=== PATIENT | female | born 1930 | race Caucasian/White ===

== ENCOUNTER 2016-04-30 08:22 | Outpatient (CLI) | payer MEDICARE, OTHER ==
[2015-10-11 14:57] VITALS: BP 99/65
== END 2016-04-30 08:30 ==
LOC: POD 08:22
PROVIDERS: ATTEND Podiatrist Public Medicine
DX: B35.1 Tinea unguium (principal); L60.0 Ingrowing nail; M79.674 Pain in right toe(s); M79.675 Pain in left toe(s)
CPT/HCPCS: 11721; G0463

== ENCOUNTER 2016-05-26 12:09 | Outpatient (CLI) | payer MEDICARE, OTHER ==
[2015-10-11 14:57] VITALS: BP 99/65
[2016-05-26 12:34] LABS: BASOPHILS % 0.3 (0.0-1.5); EOSINOPHILS % 1.7 % (0.0-6.8); MEAN CORPUSCULAR HEMOGLOBIN 29.4 pg (28.0-34.0); MONOCYTES # 0.3 # k/uL (0.0-0.9); MONOCYTES % 3.3 % (0.0-11.0); NEUTROPHILS # 6.6 # k/uL (1.4-7.7)
[2016-05-26 12:54] LABS: eGFR (African) > 60; eGFR (Non-African) > 60
--- NOTE | 2016-05-26 14:30 | Diagnostic Imaging Report ---
TIKI SPENCE [facility] [address] [address] Report Submission Date: May 26, 2016 1:38:59 PM CDT Patient Study Name: LAURA ROBERTSON Date: May 26, 2016 12:34:15 PM CDT Modality Type: CT\SR Gender: F Description: : 30 Institution: [facility] Physician: TIKI SPENCE Computed tomography of the head without contrast History: Headache and mental status changes Findings: Prior exams were not provided for comparison. Transverse brain sections are obtained without contrast revealing left lateral frontal encephalomalacia, global brain atrophy, and moderate to marked hydrocephalus. 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 There is no intracranial hemorrhage or skull lesion. Impression: 1. Prior images have not been provided for comparison. 2. 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 3. Moderate hydrocephalus. Electronically signed on May 26, 2016 1:38:59 PM CDT by: Rocael GONSALVES
== END 2016-05-26 12:10 ==
LOC: RAD 12:09
PROVIDERS: ATTEND Family Medicine
DX: R51 Headache (principal); R41.9 Unspecified symptoms and signs involving cognitive functions and awareness
CPT/HCPCS: 36415; 70450; 80053; 85025

== ENCOUNTER 2016-09-03 08:28 | Outpatient (CLI) | payer MEDICARE, OTHER ==
[2015-10-11 14:57] VITALS: BP 99/65
== END 2016-09-03 08:30 ==
LOC: POD 08:28
PROVIDERS: ATTEND Podiatrist Public Medicine
DX: B35.1 Tinea unguium (principal); L60.0 Ingrowing nail; M79.675 Pain in left toe(s); M79.674 Pain in right toe(s)
CPT/HCPCS: 11721; G0463

== ENCOUNTER 2016-12-31 08:30 | Outpatient (CLI) | payer MEDICARE, OTHER ==
[2015-10-11 14:57] VITALS: BP 99/65
== END 2016-12-31 08:32 ==
LOC: POD 08:30
PROVIDERS: ATTEND Podiatrist Public Medicine
DX: B35.1 Tinea unguium (principal); L10.0 Pemphigus vulgaris; M79.674 Pain in right toe(s); M79.675 Pain in left toe(s)
CPT/HCPCS: 11721; G0463

== ENCOUNTER 2017-05-06 08:28 | Outpatient (CLI) | payer MEDICARE, OTHER ==
[2015-10-11 14:57] VITALS: BP 99/65
== END 2017-05-06 09:49 ==
LOC: POD 08:28
PROVIDERS: ATTEND Podiatrist Public Medicine
DX: B35.1 Tinea unguium (principal); L60.0 Ingrowing nail; M79.674 Pain in right toe(s); M79.675 Pain in left toe(s)
CPT/HCPCS: 11721; G0463

== ENCOUNTER 2017-07-08 12:35 | Emergency (ER) | payer MEDICARE, OTHER ==
--- NOTE | 2017-07-08 12:55 | ED Physician Documentation ---
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 Pt became very inattentive and was having difficulty walking, dragging her R leg. Pt is seen at [facility] in [place], Dr. Rene Arshad et al.) - ROS CONST: other (Pt inattentive, does not give reliable ROS) EYES/ENT: none CVS/RESP: none GI/: none MS/SKIN/LYMPH: none NEURO/PSYCH: other (unable to walk per family, observed dragging R leg) - PAST HX Past History: hypertension, other (hypertension, seizure, CVA, aphasia, ) Allergies/Adverse Reactions: Allergies Allergy/AdvReac Type Severity Reaction Status Date / Time No Known Allergies Allergy Verified 07/08/17 13:20 Home Medications: Ambulatory Orders Medication Instructions Recorded Acetaminophen [Tylenol] 650 mg PO Q4 PRN 02/02/14 Aspirin [Hugo] 325 mg PO DAILY 02/02/14 Biotin/Calcium Carbonate [Biotin 1 each PO DAILY 02/02/14 800 Mcg Tablet] Lisinopril [Prinivil] 40 mg PO DAILY #30 tablet 02/22/14 levETIRAcetam [Keppra] 500 mg PO BID #60 tablet 02/22/14 Mecobalamin [B-12] 1,000 mcg SL QDAY 10/11/15 Thyroid,Pork [[place] Thyroid] 60 mg PO QDAY 10/11/15 Trospium Chloride [Sanctura] 20 mg PO BID 10/11/15 Atorvastatin Calcium [Lipitor] 1 tab PO DAILY 07/08/17 Metoprolol Tartrate [Metoprolol 1 tab PO BID 07/08/17 Tartrate] Thyroid,Pork [Food And Nutrition Services Assistant Thyroid] 1 tab PO DAILY 07/08/17 - SOCIAL HX Smoking History: non-smoker Alcohol Use: none Drug Use: none - FAMILY HX Family History: No - VITAL SIGNS Vital Signs: Vital Signs Temp Pulse Resp BP Pulse Ox 98.5 F 85 14 162/86 99 07/08/17 12:35 07/08/17 12:35 07/08/17 12:35 07/08/17 12:35 07/08/17 12:35 - REVIEWED ASSESSMENTS Nursing Assessment Reviewed: Yes Vitals Reviewed: Yes Progress - Progress Progress: CT head w/o contrast: Findings: Ventricles and sulci are prominent the wall of the. Cerebrocerebellar parenchyma demonstrates periventricular low attenuation consistent with small vessel disease. Left posterior frontal lobe encephalomalacia. No evidence for parenchymal hemorrhage. No evidence for mass or mass effect. No midline shift. No extra axial fluid collections. Partial visualization of the paranasal sinuses, mastoid air cells, orbits, skull and scalp without gross irregularity. Vascular calcifications. Impression: Advanced age related changes. Significant ventricular dilation. No acute appearing parenchymal process. No hemorrhage. Correlation with prior imaging recommended when becomes available to confirm stability the presumed chronic findings. U/A - neg Transfer to [facility]. Dr. Zambrano (d/w neurologist Dr. Rene Arshad). - EKG/XRAY/CT EKG: NSR (HR=63; ND interval 204; non-specifict ST/T abnormalities.) General Adult Physical Exam - PHYSICAL EXAM GENERAL APPEARANCE: mild distress (inattentive) EENT: eye inspection normal, pharynx normal NECK: normal inspection, supple RESPIRATORY: no resp distress, chest non-tender, breath sounds normal CVS: reg rate & rhythm, heart sounds normal, equal pulses ABDOMEN: soft, no organomegaly, normal bowel sounds BACK: normal inspection, no CVA tenderness SKIN: warm/dry, normal color EXTREMITIES: non-tender, no evidence of injury NEURO: sensation nml, disoriented, other (Pt not oriented; inattentive to exam; no noteable difference in strength R v L. Able to identify month as June. Cannot follow instructions. Not able to stand, weakness v. inattentive/ uncooperative.) Discharge Clincal Impression: change in mental status, hx hydrocephalus Referrals: Nandini Fernández MD [Primary Care Provider] - Condition: Stable Disposition: [facility] Decision to Admit: NO Decision Time: 15:51
[2017-07-08 14:06] LABS: eGFR (African) > 60; eGFR (Non-African) > 60
[2017-07-08 14:17] LABS: BASOPHILS % 0.4 (0.0-1.5); EOSINOPHILS % 3.7 % (0.0-6.8); MEAN CORPUSCULAR HEMOGLOBIN 28.4 pg (28.0-34.0); MEAN CORPUSCULAR VOLUME 90.2 fl (80.0-100.0); MONOCYTES % 4.9 % (0.0-11.0); NEUTROPHILS # 4.6 # k/uL (1.4-7.7)
--- NOTE | 2017-07-08 16:21 | Diagnostic Imaging Report ---
ZAID GODFREY [facility] [address] [facility] [address] [place], [place]. [address] Report Submission Date: July 08, 2017 1:43:09 PM CDT Patient Study Name: LAURA ROBERTSON Date: July 08, 2017 1:21:47 PM CDT Modality Type: CT\SR Gender: F Description: CT BRAIN W/O CONTRAST : 30 Institution: [facility] Physician: ZAID GODFREY Examination: CT head without contrast History: CT HEAD W/O, MENTAL STATUS CHANGES, R LE WEAKNESS, HX OF HYDROCEPHALUS , NO KNOWN RECENT INJURY (Hx) Comparison exam: None available for direct review Technique: Noncontrast head CT protocol. Findings: Ventricles and sulci are prominent the wall of the. Cerebrocerebellar parenchyma demonstrates periventricular low attenuation consistent with small vessel disease. Left posterior frontal lobe encephalomalacia. No evidence for parenchymal hemorrhage. No evidence for mass or mass effect. No midline shift. No extra axial fluid collections. Partial visualization of the paranasal sinuses , mastoid air cells, orbits, skull and scalp without gross irregularity. Vascular calcifications. Impression: Advanced age related changes. Significant ventricular dilation. No acute appearing parenchymal process. No hemorrhage. Correlation with prior imaging recommended when becomes available to confirm stability the presumed chronic findings. Electronically signed on July 08, 2017 1:43:09 PM CDT by: Holland GONSALVES
[2017-07-08 18:14] VITALS: BP 173/73
== END 2017-07-08 17:55 | disposition short-term general hospital (02) ==
LOC: ED 12:35
DX: R41.82 Altered mental status, unspecified (principal); Z86.79 Personal history of other diseases of the circulatory system
CPT/HCPCS: 70450; 80053; 85025; 85610; 85730; 99283; 99285; S1016

== ENCOUNTER 2017-08-19 08:42 | Outpatient (CLI) | payer MEDICARE, OTHER ==
[2015-10-11 14:57] VITALS: BP 99/65
== END 2017-08-19 08:44 ==
LOC: POD 08:42
PROVIDERS: ATTEND Podiatrist Public Medicine
DX: B35.1 Tinea unguium (principal); L60.0 Ingrowing nail; M79.674 Pain in right toe(s); M79.675 Pain in left toe(s)
CPT/HCPCS: 11721; G0463